=== PATIENT | male | born 1965 | race Two or more races ===

== ENCOUNTER → 2019-03-29 | Outpatient (CLI) | payer BC ==
--- NOTE | 2019-03-30 00:02 | CONS ---
CONSULTATION DATE OF SERVICE: 03/29/2019 This patient is a 54-year-old gentleman who has been evaluated in the sleep center for possible obstructive sleep apnea-hypopnea syndrome. HISTORY OF PRESENT ILLNESS/SLEEP-WAKE EVALUATION: Patient's usual sleep schedule on working days is from 10 p.m. to 6 a.m. and on weekends from midnight until around 9 or 10 a.m. Sometimes he has problems with falling asleep, but usually not more than 30 minutes. He does have a TV set in the bedroom. He sleeps usually on the side position with his , with episodes of loud snoring and witnessed episodes of stopped breathing during sleep, according to his . During the day, the patient may feel some sleepiness in some situations like watching TV, but usually he does not take naps. [place] Sleepiness Scale is 5. No history of hypnagogic hallucinations, sleep paralysis or cataplexy. PAST MEDICAL HISTORY: 1. Hypertension. 2. Asthma. 3. Grinding teeth. MEDICATIONS: 1. Two medications for hypertension; patient does not remember the names exactly. 2. Singulair. 3. Albuterol. 4. Qvar. 5. Inhalers. SOCIAL HISTORY: Positive for smoking for about 4 pack/years; quit 30 years ago. Alcohol consumption occasional. Patient also had episodes when he used marijuana, but not for a long time. PAST SURGICAL HISTORY: None. FAMILY HISTORY: Hypertension, arthritis, sleep apnea, diabetes, skin cancer. REVIEW OF SYSTEMS: Awakenings from sleep with nocturia up to 2 times. Snoring. PHYSICAL EXAMINATION: GENERAL: A pleasant patient in no distress. VITAL SIGNS: BP 153/97, HR 82, RR 16, height 5 feet 8 inches, weight 194 pounds, body mass index 29.4, temperature 98.2, oxygen saturation at room air 96%. HEENT: PERRLA, EOMI. Evaluation of oropharynx showed tongue protrudes midline. Extremely low position of soft palate. Mallampati IV. Some restriction of nasal breathing. NECK: Supple. No JVD. Thyroid is not palpable. Wide neck; 16 inches in circumference. LUNGS: Clear to percussion and to auscultation. Good air exchange. No wheezing or rhonchi. HEART: S1, S2 regular. No murmurs, gallops or rubs. ABDOMEN: Soft and nontender. Bowel sounds are present. No organomegaly. EXTREMITIES: No clubbing or cyanosis. [employer]: Awake, alert, and oriented X3. Cranial nerves 2 to 7 intact. There is no fasciculation or atrophy. noted. No focal deficits observed. IMPRESSION: 1. Loud snoring, witnessed episodes of stopped breathing during sleep, extremely low position of soft palate, Mallampati IV, wide neck, 16 inches in circumference, awakenings from sleep with nocturia; obstructive sleep apnea-hypopnea syndrome. 2. Overweight, borderline to obesity; body mass index 29.4. 3. Hypertension. 4. Asthma. 5. History of grinding teeth. PLAN: 1. Home sleep apnea test for evaluation of patient's breathing during sleep. 2. CPAP/BiPAP titration if sleep study confirms obstructive sleep apnea-hypopnea syndrome. 3. Preferable position during sleep on the side. 4. No driving if patient feels any sleepiness. 5. I will see patient for follow up visit to explain results of testing and following plan. Thank you very much for referring this patient for consultation. Sincerely, Timbo Duong MD, PhD, FAASM Diplomat of [employer] [facility] Teacher of [facility] [place] MMODL / IJN: [id number] /
== END | disposition home or self-care (01) ==
LOC: SLEEP 16:06
PROVIDERS: ATTEND Internal Medicine
DX: G47.33 Obstructive sleep apnea (adult) (pediatric) (principal); E66.3 Overweight; I10 Essential (primary) hypertension; J45.909 Unspecified asthma, uncomplicated; Z68.29 Body mass index [BMI] 29.0-29.9, adult; Z86.59 Personal history of other mental and behavioral disorders; Z87.891 Personal history of nicotine dependence; Z79.51 Long term (current) use of inhaled steroids; Z79.899 Other long term (current) drug therapy
CPT/HCPCS: 99211